=== PATIENT | female | born 1990 | race Hispanic/Latino ===

== ENCOUNTER → 2016-12-21 | Outpatient (CLI) | payer OTHER ==
--- NOTE | 2016-12-22 10:42 | RAD ---
EXAM DESCRIPTION: Chest,2 Views CLINICAL HISTORY: 26 years,Female,REACTION TO TB TEST COMPARISON: None FINDINGS: There are no consolidations. No effusions. No pneumothoraces. No nodules. Bony elements unremarkable for age. Mild increased haziness in right lung base on the PA view only this most likely is due to the mild pectus excavatum. IMPRESSION: No acute findings. Electronically signed by: Neptali Zeng MD 12/22/2016 10:42 AM CDT
== END | disposition home or self-care (01) ==
LOC: RAD 15:31
PROVIDERS: ATTEND Obstetrics & Gynecology
DX: R76.11 Nonspecific reaction to tuberculin skin test without active tuberculosis (principal)

== ENCOUNTER 2018-04-11 14:28 | Emergency (ER) | payer OTHER ==
[2018-04-11 14:55] VITALS: TEMP 98.6
[2018-04-11] MEDS ORDERED: LACTATED RINGERS 1,000 ML ONE (15:51)
[2018-04-11] MEDS ORDERED: LACTATED RINGERS 1,000 ML IVS ONE (16:12)
[2018-04-11] MEDS ORDERED: ONDANSETRON INJ 4 MG/2 ML VIAL IV ONE (16:13)
--- NOTE | 2018-04-11 16:22 | ED.PDOC ---
History of Present Illness - General Chief Complaint: GI Problem Stated Complaint: NAUSEA Time Seen by Provider: 04/11/18 16:16 Information Source: patient Exam Limitations: no limitations - History of Present Illness Initial Comments: Jael Engel 27 y/o female came to er with feeling of nausea yeterday and dull lower abdominal pain intermittent since this am stated ate a little bit no vomiting or diarrhea had normal bm this am.Denies vaginal discharge,missed periods,not sexually active.No chronic medical problem. Abdominal Pain Onset Location: suprapubic Pain Radiation: no radiation Quality: dull Timing/Duration: 7-24 hours Improving Factors: nothing Worsening Factors: nothing Associated Symptoms: nausea/vomiting Review of Systems - Review of Systems Constitutional: States: no symptoms reported EENTM: States: no symptoms reported Respiratory: States: no symptoms reported Cardiology: States: no symptoms reported Gastrointestinal/Abdominal: States: see HPI Genitourinary: States: no symptoms reported Musculoskeletal: States: no symptoms reported Skin: States: no symptoms reported, change in color Past Medical History (General) - Patient Medical History Hx Seizures: No Hx Stroke: No Hx Dementia: No Hx Asthma: No Hx of COPD: No Hx Cardiac Disorders: No Hx Congestive Heart Failure: No Hx Pacemaker: No Hx Thyroid Disease: No Hx Diabetes: Yes - gestational Hx Gastroesophageal Reflux: No Hx Renal Disease: No Hx of HIV: No Hx MRSA: No Surgical History: no surgical history - Vaccination History Hx Tetanus, Diphtheria Vaccination: No - Social History Hx Tobacco Use: No Hx Physical Abuse: No Hx Emotional Abuse: No - Activities of Daily Living Patient Lives Alone: No - Female History Patient is a Female of Child Bearing Age (10 -59 yrs old): Yes Hx Last Menstrual Period: 03/12/18 Patient : No Family Medical History - Family History Mother Family History: No Known Hx Family Hypertension: Yes - dad Hx Family Diabetes: Yes - mom Physical Exam - Physical Exam General Appearance: Alert, Comfortable, No apparent distress Eyes, Ears, Nose, Throat Exam: normal ENT inspection, TMs normal, pharynx normal Neck: non-tender, supple, normal inspection Respiratory: chest non-tender, lungs clear, normal breath sounds Cardiovascular/Chest: normal peripheral pulses, regular rate, rhythm, no murmur Peripheral Pulses: No deficit Gastrointestinal/Abdominal: soft, tenderness - lwer abdomen,no peritoneal signs Back Exam: no CVA tenderness, no vertebral tenderness Neurologic: alert, oriented x 3 Skin Exam: normal color, warm/dry Progress - Progress Progress: 04/11/18 16:28 Vital Signs - 8 hr 04/11/18 14:45 Temperature 98.6 F Pulse Rate [ 84 left brachial] Respiratory 18 Rate Blood Pressure 128/74 [left brachial] O2 Sat by Pulse 100 Oximetry - Results/Orders Results/Orders: 04/11/18 15:00 URINE CULTURE W/COLONY COUNT Stat 04/11/18 16:12 Lactated Ringers [Lr] 1,000 ml IVS ONCE Laboratory Results - last 24 hr 04/11/18 04/11/18 04/11/18 04:00 15:00 16:28 WBC 8.5 RBC 4.92 Hgb 14.8 Hct 44.2 MCV 89.8 MCH 30.1 MCHC 33.5 RDW 12.9 Plt Count 347 MPV 8.0 Absolute Neuts (auto) 4.90 Absolute Lymphs (auto) 2.80 Absolute Monos (auto) 0.50 Absolute Eos (auto) 0.20 Absolute Basos (auto) 0.10 Neutrophils % 57.7 Lymphocytes % 33.5 Monocytes % 5.6 Eosinophils % 1.9 Basophils % 1.3 Sodium Potassium Chloride Carbon Dioxide Anion Gap BUN Creatinine BUN/Creatinine Ratio Random Glucose Serum Osmolality Calcium Total Bilirubin AST ALT Alkaline Phosphatase Serum Total Protein Albumin Globulin Albumin/Globulin Ratio Lipase Urine Color Yellow Urine Appearance Clear Urine pH 6.0 Ur Specific [place] >= 1.030 Urine Protein Negative Urine Glucose (UA) Negative Urine Ketones Trace Urine Blood Moderate H Urine Nitrite Negative Urine Bilirubin Negative Urine Urobilinogen 0.2 Ur Leukocyte Esterase Small H Urine RBC 1-3 Urine WBC 1-3 Ur Epithelial Cells 1-3 Urine Bacteria 1+ Urine HCG, Qual Negative 04/11/18 16:28 WBC RBC Hgb Hct MCV MCH MCHC RDW Plt Count MPV Absolute Neuts (auto) Absolute Lymphs (auto) Absolute Monos (auto) Absolute Eos (auto) Absolute Basos (auto) Neutrophils % Lymphocytes % Monocytes % Eosinophils % Basophils % Sodium 138 Potassium 3.7 Chloride 104 Carbon Dioxide 27 Anion Gap 10.7 L BUN 9 Creatinine 0.90 BUN/Creatinine Ratio 10.0 Random Glucose 95 Serum Osmolality 274.2 L Calcium 9.4 Total Bilirubin 0.3 AST 15 ALT 10 Alkaline Phosphatase 68 Serum Total Protein 7.6 Albumin 4.3 Globulin 3.3 Albumin/Globulin Ratio 1.3 Lipase 27 Urine Color Urine Appearance Urine pH Ur Specific [place] Urine Protein Urine Glucose (UA) Urine Ketones Urine Blood Urine Nitrite Urine Bilirubin Urine Urobilinogen Ur Leukocyte Esterase Urine RBC Urine WBC Ur Epithelial Cells Urine Bacteria Urine HCG, Qual Departure - Departure Clinical Impression: Nausea Abdominal pain Qualifiers: Abdominal location: lower abdomen, unspecified Qualified Code(s): R10.30 - Lower abdominal pain, unspecified Time of Disposition: 17:04 Disposition: Discharge to Home or Self Care Condition: Fair Departure Forms: ED Discharge - Pt. Copy, Patient Portal Self Enrollment Diet: other - AVOID GREASY/SPICY FOODS/DAIRY UNTIL BETTER;BRAT DIET-banana,rice, applesauce,crackers tea,efrain dana Prescriptions: Acetamin W/Cod Elix 120/12 [Tylenol/Codiene Elixir 120/12] 10 ml PO TID PRN #60 ml PRN Reason: Pain Ondansetron Odt [Zofran ODT] 8 mg PO TID PRN #10 tab PRN Reason: Nausea Home Medications: Ambulatory Orders Acetamin W/Cod Elix 120/12 [Tylenol/Codiene Elixir 120/12] 10 ml PO TID PRN #60 ml 04/11/18 Ondansetron Odt [Zofran ODT] 8 mg PO TID PRN #10 tab 04/11/18 Additional Instructions: Follow up with primary Md in am 2017
[2018-04-11 17:23] VITALS: BP 123/83; O2SAT 100
== END 2018-04-11 17:24 | disposition home or self-care (01) ==
LOC: ER 14:28
DX: R11.0 Nausea (principal); R10.30 Lower abdominal pain, unspecified
CPT/HCPCS: 36415; 80053; 81001; 81025; 83690; 85025; 87086; J2405; J7120

== ENCOUNTER → 2019-05-05 | Outpatient (CLI) | payer OTHER ==
--- NOTE | 2019-05-05 10:53 | US ---
EXAM DESCRIPTION: Abdomen,Limited CLINICAL HISTORY: RIGHT UPPER QUADRANT ABDOMINAL TENDERNESS COMPARISON: None Available. TECHNIQUE: Right upper quadrant ultrasound FINDINGS: Pancreas: Visualized portions of the pancreas are unremarkable. Bowel gas obscures some areas. Aorta/inferior vena cava: No aortic aneurysm. Normal inferior vena cava. Liver: The liver is homogeneous in texture with normal echogenicity of the hepatic parenchyma. No focal liver lesion or intrahepatic bile duct dilatation. No liver surface irregularity. Normal appearance of the portal vein and hepatic veins. Gallbladder: Gallbladder appears normal with no intraluminal stones or wall thickening. Common bile duct: Normal caliber measuring 4.5 mm. Right kidney: Renal length is 11.7 cm. Normal cortical echogenicity. Cortical thickness is normal. No hydronephrosis is seen. No renal mass or shadowing calculus. IMPRESSION: No diagnostic abnormality is identified on sonographic examination of the right upper quadrant. Electronically signed by: Riley Huitron MD 05/05/2019 10:52 AM CDT
== END ==
LOC: LAB.O 09:37
PROVIDERS: ATTEND Nurse Practitioner Family
DX: R10.811 Right upper quadrant abdominal tenderness (principal)